=== PATIENT | female | born 1960 | race Caucasian/White ===

== ENCOUNTER 2023-01-06 05:55 | Day surgery (SDC) | payer OTHER ==
[2023-01-06] MEDS ORDERED: Lactated Ringers 1,000 ML IV SCH (06:30)
[2023-01-06 06:53] VITALS: RESP 18
[2023-01-06] MEDS ORDERED: DIPRIVAN 200 MG/20 ML IV ONE ×3 (07:31→08:08)
[2023-01-06] MEDS ORDERED: Xylocaine-Mpf 2% 5 Ml Vial ONE (07:31)
[2023-01-06] MEDS ORDERED: Versed 2 MG/2 ML Injection ONE (07:31)
[2023-01-06 08:55] VITALS: TEMP 97.8
[2023-01-06 09:05] VITALS: BP 132/84; PULSE 68; O2SAT 95
--- NOTE | 2023-01-06 10:38 | OP ---
SURGERY DATE/TIME: 01/06/2023 0744 PREOPERATIVE DIAGNOSIS: Positive Cologuard. POSTOPERATIVE DIAGNOSIS: Multiple colon polyps. PROCEDURE: Colonoscopy. SURGEON: Jamal Solis M.D. ANESTHESIA: MAC by Alexandr Giron CRNA. ESTIMATED BLOOD LOSS: Minimal. SPECIMENS: Multiple cold and hot forceps polypectomies approximately eight in total from the descending, sigmoid and rectal area. DESCRIPTION OF PROCEDURE: After informed written consent was obtained, the patient was taken to the endoscopy suite. She was placed in left lateral decubitus position and anesthesia was titrated to desired level of consciousness. Digital rectal exam showed normal sphincter tone and no internal lesions. The scope was inserted into the rectum and sequentially the entire colonic mucosa was traversed. The level of cecum was reached and verified with direct visualization of the ileocecal valve. Upon withdrawal careful mucosal inspection revealed sessile polyps in the proximal descending colon near the splenic flexure. They were very small. Two of them were removed in cold forceps fashion and sent in the same container. In the sigmoid colon, there were approximately four polyps from that region removed with hot forceps polypectomy and then two more in the rectal region which were likewise removed with hot forceps. All of these were sent in three sales representative publications specimen containers from the anatomic position. They all appeared benign and were removed in their entirety with no blood loss following removal. Retroflexion was performed prior to withdrawal showed no internal lesions. The scope was removed and the patient was transferred to the recovery room in good condition. She has been advised to follow up in a week for pathology results.
== END 2023-01-06 09:15 | disposition home or self-care (01) ==
LOC: SDC 05:55
PROVIDERS: ATTEND Family Medicine
DX: D12.7 Benign neoplasm of rectosigmoid junction (principal); D12.4 Benign neoplasm of descending colon; D12.5 Benign neoplasm of sigmoid colon; R19.5 Other fecal abnormalities
CPT/HCPCS: 93005; J2250; J2704